=== PATIENT | male | born 1995 | race African-American/Black ===

== ENCOUNTER 2016-08-09 21:49 | Emergency (ER) | payer MEDICAID ==
[~2016-08-09] VITALS: Ht 175.3 cm; Wt 60.0 kg
[2016-08-09 21:56] VITALS: BP 129/77
[2016-08-10] MEDS ORDERED: FLUORESCEIN SODIUM 1MG/STRIP OP ONE (01:00)
[2016-08-10] MEDS ORDERED: TETRACAINE 0.5% OPHTH DROPS 4ML OP ONE (01:00)
[2016-08-10] MEDS ORDERED: IBUPROFEN 600MG TABLET PO ONE (01:00)
[2016-08-10] MEDS ORDERED: BALANCED SALT IRRIG SOLN 15ML IO ONE (01:00)
== END 2016-08-10 02:59 | disposition home or self-care (01) ==
LOC: ER 21:56
DX: H57.12 Ocular pain, left eye (principal); F17.200 Nicotine dependence, unspecified, uncomplicated; H10.9 Unspecified conjunctivitis; H54.61 Unqualified visual loss, right eye, normal vision left eye; I10 Essential (primary) hypertension
CPT/HCPCS: 99283